=== PATIENT | female | born 1970 | race Caucasian/White ===

== ENCOUNTER 2017-05-09 17:10 | Emergency (ER) | payer MEDICAID ==
[~2017-05-09] VITALS: Ht 165.1 cm; Wt 80.0 kg
[~2017-05-09 17:10] MED LIST: METO100T13 PO
[2017-05-09 17:16] VITALS: Ht 165.1 cm; Wt 80.0 kg
--- NOTE | 2017-05-09 19:56 | ERA ---
ER Documentation Chief Complaint Date/Time DATE: 05/09/17 TIME: 19:53 Chief Complaint BIB C/O LOWER BACK PAIN X 2 WEEKS.DENIES ANY TRAUMA HPI This is a 47-year-old female presenting with a chief complaint of chest pain for the past few months that worsens at night, and mid back pain 2 weeks. Patient has a history of hypertension and TIA 1 year ago. Has a chronic history of shortness of breath. Denies smoking, recreational drug use or alcohol. Patient says that the mid back pain is worse with movement. Patient's back pain has been for the past 2 months. Patient denies pain lasting more than 6 weeks; Denies saddle parasthesia, incontinence, RPND, or pain exacerbated by valsalva; Denies fever, chills, night sweats, weight loss, or increase symptoms at night. Patient also denies h/o cardiovascular dz, sciatica, disk herniation, spinal stenosis, fibromyalgia, cancer, HIV, IVDU, arthritis or recent surgery. Patient has no other complaints and describes no other associated manifestations. ROS All systems reviewed and are negative except as per history of present illness. Medications Home Meds Active Scripts Ibuprofen* (Motrin*) 600 Mg Tab, 600 MG PO Q6H Y for PAIN AND OR ELEVATED TEMP, #30 TAB Prov:NESTOR SALINAS PA-C 05/09/17 Reported Medications Metoprolol Succinate* (Toprol XL*) 100 Mg Tab.sr.24h, 100 MG PO DAILY, #30 TAB 11/10/16 Allergies Allergies: Coded Allergies: No Known Allergy (Unverified , 11/10/16) PMhx/Soc History of Surgery: Yes (tubal ligation.) Anesthesia Reaction: No Hx Neurological Disorder: No Hx Respiratory Disorders: No Hx Cardiac Disorders: No Hx Psychiatric Problems: No Hx Miscellaneous Medical Probl: Yes (HTN) Hx Alcohol Use: No Hx Substance Use: No Hx Tobacco Use: No Smoking Status: Never smoker Physical Exam Vitals Vital Signs Date Time Temp Pulse Resp B/P Pulse Ox O2 Delivery O2 Flow Rate FiO2 05/09/17 23:49 98.7 74 20 203/111 100 Room Air 05/09/17 17:16 98.5 121 20 199/109 99 Physical Exam Const: Well-appearing well-developed 47-year-old female Head: Atraumatic Eyes: Normal Conjunctiva ENT: Normal External Ears, Nose and Mouth. Neck: Full range of motion..~ No meningismus. Resp: Clear to auscultation bilaterally Cardio: Regular rate and rhythm, no murmurs. Mild apical heave palpated. Abd: Soft, non tender, non distended. Normal bowel sounds Skin: No petechiae or rashes Back: Mild tenderness lateral to the spine bilaterally. No midline tenderness. No flank tenderness. Ext: No cyanosis, or edema Neur: Awake and alert Psych: Normal Mood and Affect Result Diagram: 05/09/17223305/09/172233 Results 24 hrs Laboratory Tests Test 05/09/17 22:34 White Blood Count 12.810^3/ul Red Blood Count 4.4910^6/ul Hemoglobin 10.6g/dl Hematocrit 34.3% Mean Corpuscular Volume 76.4fl Mean Corpuscular Hemoglobin 23.6pg Mean Corpuscular Hemoglobin Concent 30.9g/dl Red Cell Distribution Width 16.6% Platelet Count 14697^3/UL Mean Platelet Volume 10.7fl Neutrophils % 55.0% Lymphocytes % 33.7% Monocytes % 7.7% Eosinophils % 3.1% Basophils % 0.2% Nucleated Red Blood Cells % 0.0/100WBC Neutrophils # 7.010^3/ul Lymphocytes # 4.310^3/ul Monocytes # 1.010^3/ul Eosinophils # 0.410^3/ul Basophils # 0.010^3/ul Nucleated Red Blood Cells # 0.010^3/ul D-Dimer 251.59ng/ml D-Dimer Comment Sodium Level 140mmol/L Potassium Level 3.7mmol/L Chloride Level 107mmol/L Carbon Dioxide Level 21mmol/L Anion Gap 16 Blood Urea Nitrogen 10mg/dl Creatinine 0.69mg/dl Glucose Level 96mg/dl Calcium Level 9.7mg/dl Total Bilirubin 0.1mg/dl Direct Bilirubin 0.00mg/dl Indirect Bilirubin 0.1mg/dl Aspartate Amino Transf (AST/SGOT) 23IU/L Alanine Aminotransferase (ALT/SGPT) 25IU/L Alkaline Phosphatase 118IU/L Troponin I < 0.012ng/ml Total Protein 8.6g/dl Albumin 5.1g/dl Globulin 3.50g/dl Albumin/Globulin Ratio 1.45 Procedures/MDM The patient was evaluated and worked up for atypical chest pain as described in the history and physical exam. The patient had an EKG taken. EKG was read by me as normal sinus rhythm with low voltage, good baseline normal access no ST changes. My attending Dr. Shaw read the EKG as well as unremarkable. Patient denied pain medications. The workup after presenting my case to my attending Dr. Shaw included an x-ray of the thoracic spine, chest x-ray, d- dimer, CMP, CBC and troponin. Labs were relevant for 12.8 white blood cells and red blood cell levels consistent with microcytic hemolytic anemia. X-rays was read by the radiologist as unremarkable. The current most likely diagnosis is atypical chest pain and musculoskeletal, strain versus sprain of the paraspinal muscles of the back. Treatment will thus include outpatient ibuprofen for symptomatic relief. I do not believe that muscle relaxants or narcotics are appropriate at this time as there is no evidence of paraspinal spasm on x-ray and patient's pain is mild. At this time I do not suspect the chest pain to be due to an acute coronary syndrome, pericarditis, aortic dissection, pulmonary embolism, pneumothorax, esophageal tear/rupture, pneumonia or pancreatitis. I have very little suspicion for cauda equina or other neurovascular compromise. I have spoke with the patient regarding their condition and future management. They have verbally responded that they understand their status and treatment plan. The patients vitals are stable, and their current condition is appropriate for discharge. The patient will be given discharge instructions with return precautions. Departure Diagnosis: Primary Impression: Back pain Qualified Code: M54.6 - Chronic bilateral thoracic back pain Additional Impression: Atypical chest pain Condition: Stable Additional Instructions: Follow up with your PCP within the next 1-3 days for a more thorough evaluation and a possible referral to a specialist. Return the the emergency department immediately if symptoms worsen or change. If you have any questions regarding medications, ask your pharmacist or us before you leave. If any adverse reactions occur while taking your medications, discontinue the treatment and return to the emergency department immediately. Take your medications as directed, and complete the entire course of treatment. NESTOR SALINAS PA-C May 09, 2017 19:56
--- NOTE | 2017-05-09 21:23 | RADRPT ---
PROCEDURE: XR thoracic spine CLINICAL INDICATION: Back pain. TECHNIQUE: AP and lateral views of the thoracic spine were obtained. COMPARISON: None available FINDINGS: Bone architecture and mineralization are preserved. Thoracic kyphosis is preserved. Vertebral body s tature is intact. No significant disk space narrowing is present. No lytic or blastic lesion is thomas dent. The posterior elements and paraspinal soft tissues are normal. RPTAT:HJJR IMPRESSION: Unremarkable thoracic spine series. Physician Cristóbal Date Time Electronically viewed and signed by Physician Cristóbal on 05/09/2017 21:23 JR/
[2017-05-09 22:40] LABS: ADD SCAN DIFF NO
[2017-05-09 22:42] LABS: BASOPHILS % 0.2 % (0.0-2.0); EOSINOPHILS # 0.4 10^3/ul (0.0-0.5); EOSINOPHILS % 3.1 % (0.0-7.0); HEMATOCRIT 34.3 % (37.0-47.0); HEMOGLOBIN 10.6 g/dl (12.0-16.0); LYMPHOCYTES # 4.3 10^3/ul (0.8-2.9); LYMPHOCYTES % 33.7 % (15.0-51.0); MEAN CORPUSCULAR HEMOGLOBIN 23.6 pg (29.0-33.0); MEAN CORPUSCULAR HGB CONC 30.9 g/dl (32.0-37.0); MEAN CORPUSCULAR VOLUME 76.4 fl (82.0-101.0); MEAN PLATELET VOLUME 10.7 fl (7.4-10.4); MONOCYTES % 7.7 % (0.0-11.0); PLATELET COUNT 352 10^3/UL (140-415); RED BLOOD COUNT 4.49 10^6/ul (4.20-5.40); RED CELL DISTRIBUTION WIDTH 16.6 % (11.5-14.5); WHITE BLOOD COUNT 12.8 10^3/ul (4.8-10.8)
[2017-05-09 23:01] LABS: ALANINE AMINOTRANSFERASE 25 IU/L (13-69); ALBUMIN 5.1 g/dl (3.3-4.9); ALBUMIN/GLOBULIN RATIO 1.45; ALKALINE PHOSPHATASE 118 IU/L (42-121); ANION GAP 16 (8-16); ASPARTATE AMINO TRANSFERASE 23 IU/L (15-46); BILIRUBIN,INDIRECT 0.1 mg/dl (0-1.1); BILIRUBIN,TOTAL 0.1 mg/dl (0.2-1.3); BLOOD UREA NITROGEN 10 mg/dl (7-20); CALCIUM 9.7 mg/dl (8.4-10.2); CARBON DIOXIDE 21 mmol/L (21-31); CHLORIDE 107 mmol/L (97-110); CREATININE 0.69 mg/dl (0.44-1.00); GLUCOSE 96 mg/dl (70-220); POTASSIUM 3.7 mmol/L (3.5-5.1); SODIUM 140 mmol/L (135-144); TOTAL PROTEIN 8.6 g/dl (6.1-8.1)
[2017-05-09 23:03] LABS: D-DIMER 251.59 ng/ml (<460)
--- NOTE | 2017-05-09 23:03 | RADRPT ---
PROCEDURE: XR Chest. CLINICAL INDICATION: Chest pain. TECHNIQUE: Portable AP upright view of the chest was obtained. COMPARISON: 11/10/2016 FINDINGS: The cardiomediastinal silhouette is within normal limits. The lungs are clear. There is no evidenc e for pleural effusion, pneumothorax or pulmonary vascular congestion. The osseous structures are i ntact with no evidence for acute abnormality. RPTAT:HJJR IMPRESSION: No evidence for acute intrathoracic pathology or interval change from 11/10/2016. Physician Cristóbal Date Time Electronically viewed and signed by Michele Erwin Physician on 05/09/2017 23:03 JR/
[2017-05-09 23:16] LABS: TROPONIN-I < 0.012 ng/ml (0.00-0.12)
[2017-05-09] MEDS ORDERED: IBUP-1542 PO (23:34)
[2017-05-09 23:49] VITALS: BP 203/111; PULSE 74; RESP 20; TEMP 98.7
== END 2017-05-09 23:55 | disposition home or self-care (01) ==
LOC: FTE 17:10
DX: M54.6 Pain in thoracic spine (principal); R07.89 Other chest pain; I10 Essential (primary) hypertension
CPT/HCPCS: 71010; 72072; 80053; 84484; 85025; 85378; 93005; Z7502

== ENCOUNTER 2017-09-14 19:13 | Emergency (ER) | payer MEDICAID ==
[~2017-09-14] VITALS: Ht 162.6 cm; Wt 80.5 kg
[~2017-09-14 19:13] MED LIST changes: +IBUP-1542 PO; +METO-336 PO; -METO100T13 PO
[2017-09-14 19:18] VITALS: Ht 162.6 cm; Wt 80.5 kg
[2017-09-14] MEDS ORDERED: KETOROLAC 30 MG INJ IM STA (20:22)
[2017-09-14 20:24] VITALS: BP 168/131; PULSE 84; RESP 17; TEMP 98.5
[2017-09-14] MEDS ORDERED: NAPR-260 PO (20:26)
[2017-09-14] MEDS ORDERED: ALPR0.5T PO (20:26)
[2017-09-14] MEDS ORDERED: ALPRAZOLAM 0.25 MG TAB PO ONE (20:30)
--- NOTE | 2017-09-14 23:35 | ERD ---
ER Documentation Chief Complaint Chief Complaint left sided numbness w/ htn and neck pain x 1 day ROS All systems reviewed and are negative except as per history of present illness. Medications Home Meds Active Scripts Naproxen* (Naprosyn*) 500 Mg Tablet, 500 MG PO BID Y for PAIN AND/OR INFLAMMATION, #30 TAB Prov:KLAUDIA CARDOZA MD 09/14/17 Alprazolam* (Xanax*) 0.5 Mg Tab, 0.5 MG PO TID for MUSCLE SPASMS, #15 TAB Prov:KLAUDIA CARDOZA MD 09/14/17 Ibuprofen* (Motrin*) 600 Mg Tab, 600 MG PO Q6H Y for PAIN AND OR ELEVATED TEMP, #30 TAB Prov:ENSTOR SALINAS PA-C 05/09/17 Reported Medications Metoprolol Succinate* (Toprol XL*) 100 Mg Tab.sr.24h, 100 MG PO DAILY, #30 TAB 11/10/16 Allergies Allergies: Coded Allergies: No Known Allergy (Unverified , 11/10/16) PMhx/Soc History of ischemic stroke without residual motor deficits, hypertension, anxiety History of Surgery: Yes (C- SECTION) Anesthesia Reaction: No Hx Neurological Disorder: Yes (HX. CVA WITHOUT DEFICITS (PER PT)) Hx Respiratory Disorders: No Hx Cardiac Disorders: No Hx Psychiatric Problems: No Hx Miscellaneous Medical Probl: Yes (HTN) Hx Alcohol Use: No Hx Substance Use: No Hx Tobacco Use: No Smoking Status: Never smoker FmHx Family History: No diabetes Physical Exam Vitals Vital Signs Date Time Temp Pulse Resp B/P Pulse Ox O2 Delivery O2 Flow Rate FiO2 09/14/17 20:24 98.5 84 17 168/131 100 09/14/17 19:18 97.8 88 20 213/105 100 Physical Exam GENERAL: Well-developed, well-nourished, well-hydrated, in no apparent distress , looks nontoxic in appearance HEENT: Moist mucous membranes, pink conjunctiva, no cervical spine tenderness or step-off deformities, no goiter, no jaundice or icterus, extraocular movements intact without pain. No submandibular induration, and no pharyngeal erythema NEURO: Alert and oriented 3, cranial nerves II through XII intact bilaterally, pupils equal round reactive to light, no focal deficits or facial asymmetry, sensation intact distally Strength 5/5 in upper and lower extremities bilaterally CARDIAC: Regular rate and rhythm, no murmurs rubs or gallops LUNGS: Clear bilaterally no wheezing crackles or stridor ABDOMEN: Soft nontender, no guarding, no rigidity, no rebound, no psoas sign no obturator sign. Normoactive bowel sounds SKIN: Warm and dry to touch, no abrasions, contusions, or hematomas, no lacerations, no ecchymosis, no target lesions, and without ulcers EXTREMITIES: No clubbing cyanosis or edema, calves are bilaterally symmetrical, no Homans sign, no popliteal cord sign. Distal pulses equal and bilateral PSYCH: Normal affect without agitation or irritability Results 24 hrs Current Medications Medications (Trade) Dose Ordered Sig/Mary Route PRN Reason Start Time Stop Time Status Last Admin Dose Admin Alprazolam (Xanax) 0.5 mg ONCE ONCE PO 09/14/17 20:30 09/14/17 20:31 DC 09/14/17 20:40 Ketorolac Tromethamine (Toradol) 30 mg ONCE STAT IM 09/14/17 20:22 09/14/17 20:23 DC 09/14/17 20:40 Procedures/MDM I administered Toradol 30 mg IM 1 and alprazolam 0.5 mg p.o. for her symptoms. Differential diagnoses considered, included but not limited to acute coronary syndrome, pulmonary embolism, aortic dissection, abdominal aortic aneurysm, sepsis, stroke, meningitis, encephalitis, pneumonia, appendicitis, cholecystitis , bowel obstruction, pyelonephritis, nephrolithiasis, cystitis, as well as metabolic, hematologic, and electrolyte abnormalities. As well as abscess, cellulitis, fractures, and dislocations. Patient feels much better at this time, and vital signs are normal, symptoms have improved. I did give strict instructions to return to the ED if symptoms continue or worsen, patient will otherwise follow-up with primary care physician. Patient understood instructions and agreed to plan. Disclaimer: Inadvertent spelling and grammatical errors are likely due to EHR/ dictation software use and do not reflect on the overall quality of patient care. Also, please note that the electronic time recorded on this note does not necessarily reflect the actual time of the patient encounter. Departure Diagnosis: Primary Impression: Paresthesia Additional Impression: Cervical radiculopathy Condition: Good Patient Instructions: Radiculopathy, Cervical, Paraesthesias KLAUDIA CARDOZA MD Sep 14, 2017 23:35
== END 2017-09-14 21:22 | disposition home or self-care (01) ==
LOC: E/R 19:13
DX: R20.0 Anesthesia of skin (principal); M54.12 Radiculopathy, cervical region; I10 Essential (primary) hypertension
CPT/HCPCS: 96372; J1885; Z7502; Z7610

== ENCOUNTER 2018-07-03 09:52 | Emergency (ER) | END 2018-07-03 12:25 | disposition home or self-care (01) ==